=== PATIENT | female | born 1990 | race Caucasian/White ===

== ENCOUNTER 2023-10-26 00:29 | Emergency (ER) | payer MEDICAID ==
[~2023-10-26] VITALS: Ht 165.1 cm; Wt 70.0 kg
[2023-10-26 00:34] VITALS: O2SAT 100
[2023-10-26] MEDS: SODIUM CHLORIDE 0.9% 1,000 ML IV ONE (01:17)
[2023-10-26 01:33] LABS: BASOPHILS % 0.2 % (0.0-2.0); EOSINOPHILS % 1.5 % (0.0-5.0); HEMATOCRIT. 40.1 % (36.0-48.0); LYMPHOCYTES % 31.8 % (20.0-50.0); MEAN CORPUSCULAR HEMOGLOBIN 28.8 pg (28.0-32.0); MEAN CORPUSCULAR HGB CONC 32.6 g/dL (31.0-37.0); MEAN CORPUSCULAR VOLUME 88.4 fL (81.0-99.0); MEAN PLATELET VOLUME 8.9 fl (7.4-10.4); MONOCYTES % 6.5 % (2.0-8.0); PLATELET 253 x1000/uL (130-400); RED BLOOD CELL COUNT 4.53 mill/uL (4.2-5.4); RED CELL DISTRIBUTION WIDTH 15.2 % (11.6-14.6)
[2023-10-26 01:42] LABS: CHLORIDE 110 mEq/L (98-107); POTASSIUM 4.4 mEq/L (3.5-5.1); SODIUM 139 mEq/L (136-145)
[2023-10-26 01:43] LABS: CALCIUM 9.3 mg/dL (8.7-10.4); CARBON DIOXIDE 23 mEq/L (21-32)
[2023-10-26 01:48] LABS: CREATININE 0.6 mg/dL (0.6-1.0); GLUCOSE 103 mg/dL (70-105); UREA NITROGEN BLOOD 9 mg/dL (9-23)
[2023-10-26 01:50] LABS: ACETAMINOPHEN < 2 ug/mL (10-30); CREATINE KINASE 78 IU/L (34-145)
[2023-10-26 01:51] LABS: ETHANOL BLOOD < 10 mg/dL (<10)
[2023-10-26 01:56] LABS: HCG SCREEN NEGATIVE
[2023-10-26 05:27] LABS: *AMPHETAMINES SCREEN URINE PRESUMPTIVE POSITIVE (NEGATIVE); *BARBITURATES SCREEN URINE NEGATIVE (NEGATIVE); *BENZODIAZEPINES SCREEN URINE NEGATIVE (NEGATIVE); *COCAINE SCREEN URINE NEGATIVE (NEGATIVE); CANNABINOID URINE SCREEN NEGATIVE (NEGATIVE); ECSTASY MDMA SCREEN URINE CONF.TEST INDICATED (NEGATIVE); METHADONE URINE SCREEN NEGATIVE (NEGATIVE); OPIATES URINE SCREEN NEGATIVE (NEGATIVE); PHENCYCLIDINE URINE SCREEN NEGATIVE (NEGATIVE)
[2023-10-26 10:14] VITALS: BP 126/74; PULSE 88; RESP 16; TEMP 97.8
== END 2023-10-26 10:15 | disposition home or self-care (01) ==
LOC: ER 00:29
DX: R46.2 Strange and inexplicable behavior (principal); R41.82 Altered mental status, unspecified
CPT/HCPCS: 80305; 80048; 80307; 80329; 80320; 82550; 82962; 84703; 85025; 36415; 70450; 93005; 96360; 96361; 99285; J7030; Z7610 ×4; G0480